=== PATIENT | male | born 1990 | race Caucasian/White ===

== ENCOUNTER 2025-03-09 11:25 | Outpatient (OUT) | payer OTHER, SELFPAY ==
--- NOTE | 2025-03-09 | XR_ITS ---
[facility] [place] [address] Patient Name: DAISY CRUZ MRN: [id number] date: 1990 Sex: M Assigned Patient Location: RAD Current Patient Location: [facility] Accession/Order Number: [id number] Exam Date: 03/09/2025 11:34 Report Date: 03/09/2025 12:21 At the request of: GUILLAUME STAPLETON DO Procedure: XR ankle LT min 3V LEFT ANKLE - 3 views CLINICAL DATA: Left ankle pain posteriorly since injury playing basketball last night. COMPARISON: None AP, lateral and oblique views were obtained. There is no evidence of fracture or dislocation. The talar dome is intact. A tiny enthesophyte is present at the insertion of the Achilles tendon. There are no significant soft tissue abnormalities. XR/XR ankle LT min 3V IMPRESSION: NO ACUTE BONY INJURY. Impression dictated by: Cleo Gomez M.D. 03/09/2025 12:21 PM Dictation Location: [place] [address] Electronically authenticated by: [id number] Y Date: 03/09/2025 12:21
--- OUTSIDE RECORDS SUMMARY | 2025-03-09 11:27 | XMS_ITS | Clinical Summary ---
Author Organization [facility] Address [address] [place] [address] Care Team Providers Care Inside Sales Administrator Name Role Phone Unavailable Primary Care Provider Unavailabl e Social History Tobacco Use Types Packs/Day Years Used Date Smoking Tobacco: Never Assessed Sex and Gender Information Value Date Recorded Sex Assigned at Not on file Legal Sex Male 11:31 PM EDT Gender Identity Not on file Sexual Orientation Not on file Plan of Treatment Not on file
--- OUTSIDE RECORDS SUMMARY | 2025-03-09 11:27 | XMS_ITS | Encounter Summary ---
Author Organization [facility] Address [facility] [place] [address] Care Team Providers Care Marketing Content Specialist Name Role Phone Unavailable Primary Care Provider Unavailabl e Source Comments In the event this information is protected by the Federal Confidentiality of Alcohol and Drug AbusePatient Records regulations: The Federal rules restrict any use of the information to criminally investigate or prosecute any alcohol or drug abuse patient.[facility] Encounter Details Date Type Department Care Team ([facility] st Contact Info) Description 05/07/2020 Patient Msg [facility] [id number] Provider, [facility] Appointment Social History Tobacco Use Types Packs/Day Years Used Date Smoking Tobacco: Never Assessed Sex and Gender Information Value Date Recorded Sex Assigned at Not on file Legal Sex Male 7:50 PM EDT Gender Identity Not on file Sexual Orientation Not on file COVID-19 Exposure Response Date Recorded In the last month, have you been in contact with someone who was confirmed or suspected to have Coronavirus / COVID-19? No / Unsure 05/07/2020 11:15 AM EST documented as of this encounter Plan of Treatment Not on file documented as of this encounter Visit Diagnoses Not on filedocumented in this encounter Additional Health Concerns Infection Onset Date Last Indicated Resolved Time COVID-19 Confirmed 05/01/2020 05/01/2020 0 8:53 PM EST documented as of this encounter
--- OUTSIDE RECORDS SUMMARY | 2025-03-09 11:27 | XMS_ITS | Clinical Summary ---
Author Organization [facility] Address [address] [place], [place] [id number] Care Team Providers Care Cooky Packer Name Role Phone Unavailable Primary Care Provider Unavailabl e Social History Tobacco Use Types Packs/Day Years Used Date Smoking Tobacco: Never Assessed Area Deprivation Index Answer Date Donta rded National Score (1-100), lower number is lower ri sk Not on file 05/26/2020 State Score (1-10), lower number is lower risk N ot on file 05/26/2020 Data from: https://www.neighborhoodatlas.medicine.[facility]/. Last address used for calculation Not on file 05/26/2020 Sex and Gender Information Value Date Recorded Sex Assigned at Not on file Legal Sex Male 7:50 PM EDT Gender Identity Not on file Sexual Orientation Not on file Plan of Treatment Health Maintenance Due Date Last Done Comments Anxiety Screening 01/23/2010 Depression Screening 01/23/2010 HIV Screening 01/23/2010 Hepatitis C Screening 01/23/2010 DTaP,Tdap,Td Vaccine (1 - Tdap) 01/23/2011 Hepatitis B Vaccine (1 of 3 - 19+ 3-dose series) 01/23 HPV Vaccine (1 - 3-dose SCDM series) 01/23/2019 Influenza Vaccine (#1) 2025 Insurance [facility] CHOICE PLUS
--- OUTSIDE RECORDS SUMMARY | 2025-03-09 11:27 | XMS_ITS | Encounter Summary ---
Author Organization [facility] Address [address] [place] [address] Phone Care Team Providers Care Senior Firmware Engineer Name Role Phone Unavailable Primary Care Provider Unavailabl e Encounter Details Date Type Department Care Team (Late st Contact Info) Description 01/22/2023 Patient Risk Score [facility]CO [facility] [facility] [address] [place] [address] Social History Tobacco Use Types Packs/Day Years Used Date Smoking Tobacco: Never Assessed Sex and Gender Information Value Date Recorded Sex Assigned at Not on file Legal Sex Male 10:41 AM EST Gender Identity Not on file Sexual Orientation Not on file documented as of this encounter Plan of Treatment Not on file documented as of this encounter Visit Diagnoses Not on filedocumented in this encounter
--- OUTSIDE RECORDS SUMMARY | 2025-03-09 11:27 | XMS_ITS | Clinical Summary ---
Author Organization [facility] Address [address] [place] [address] Care Team Providers Care Grading Clerk Name Role Phone Unavailable Primary Care Provider Unavailabl e Allergies No known active allergies Medications amoxicillin-cla vulanate 875-125 MG PO TABS take 1 Tab by mouth every 12 hours. 20 Tab 0 02/22/2013 Active acetaminophen-c odeine 300-30 MG PO TABS take 1-2 Tabs by mouth every 4 hours as needed for Pain. 20 Tab 0 02/22/2013 Active predniSONE 20 MG PO TABS Take 3 tablets daily x 5 days 15 Tab 0 02/22/2013 Active lidocaine 2 % MT SOLN 15 mL by Mouth/Throat route every 3 hours as needed. 200 mL 0 02/22/2013 Active Social History Tobacco Use Types Packs/Day Years Used Date Smoking Tobacco: Never Alcohol Use Standard Drinks/Week Comments Yes 0 (1 standard drink = 0.6 oz pur e alcohol) Sex and Gender Information Value Date Recorded Sex Assigned at Not on file Legal Sex Male 5:41 PM EDT Gender Identity Not on file Sexual Orientation Not on file Last Filed Vital Signs Vital Sign Reading Time Taken Comments Blood Pressure 129/75 02/22/2013 5:45 PM EDT Pulse 94 02/22/2013 5:45 PM EDT Temperature 36.7 C (98 F) 02/22/2013 5:45 PM EDT Respiratory Rate 16 02/22/2013 5:45 PM EDT Oxygen Saturation 100% 02/22/2013 5:45 PM EDT Inhaled Oxygen Concentration - - Weight - - Height 185.4 cm (6' 1 ) 02/22/2013 5:43 PM EDT Body Mass Index - - Plan of Treatment Health Maintenance Due Date Last Done Comments HEPATITIS C VIRUS SCREENING 1990 TETANUS 1990 HIV SCREENING DISCUSSION 01/23/2007 HEP B VACCINE (1 of 3 - 19+ 3-dose series) 01/23/2011 TDAP (ADULT) 01/23/2011 HPV VACCINE (1 - 3-dose SCDM series) 01/23/2019 COVID-19 VACCINE (1 - 2023-2 5 season) 2025 INFLUENZA VACCINE (#1) 2025 PNEUMOCOCCAL VACCINE SERIES Aged Out No longer eligible based on patient's age to complete this topic Insurance MMO
--- OUTSIDE RECORDS SUMMARY | 2025-03-09 11:27 | XMS_ITS | Clinical Summary ---
Author Organization [facility] Address [address] [place] [address] Phone Care Team Providers Care Customer Contact Specialist Name Role Phone Unavailable Primary Care Provider Unavailabl e Social History Tobacco Use Types Packs/Day Years Used Date Smoking Tobacco: Never Assessed Sex and Gender Information Value Date Recorded Sex Assigned at Not on file Legal Sex Male 10:41 AM EST Gender Identity Not on file Sexual Orientation Not on file Plan of Treatment Health Maintenance Due Date Last Done Comments HIV Screening 1990 Lipid Panel 1990 Yearly Adult Physical 1990 MMR Vaccines (1 of 1 - Stand adriel series) 01/23/1993 Hepatitis C Screening 01/23/2010 Hepatitis B Vaccines (1 of 3 - 19+ 3-dose series) 01/23/2011 DTaP/Tdap/Td Vaccines (1 - Tdap) 01/23/2014 HPV Vaccines (1 - 3-dose sta ndard series) 01/23/2019 COVID-19 Vaccine (1 - 2023-2 5 season) 2025 Influenza Vaccine (#1) 2025 Zoster Vaccines (1 of 2) 01/23/2042 HIB Vaccines Aged Out No longer eligi ble based on patient's age to complete this topic Hepatitis A Vaccines Aged Out No long er eligible based on patient's age to complete this topic IPV Vaccines Aged Out No longer eligi ble based on patient's age to complete this topic Meningococcal Vaccine Aged Out No can sheryl eligible based on patient's age to complete this topic Pneumococcal Vaccine: Pediat rics and At-Risk Adult Patients Aged Out No longer epifanio gible based on patient's age to complete this topic Rotavirus Vaccines Aged Out No longer eligible based on patient's age to complete this topic
--- OUTSIDE RECORDS SUMMARY | 2025-03-09 11:27 | XMS_ITS | Encounter Summary ---
Author Organization [facility] Address [address] [place] [address] Phone Care Team Providers Care Casing Man Name Role Phone Unavailable Primary Care Provider Unavailabl e Encounter Details Date Type Department Care Team (Late st Contact Info) Description 02/22/2023 Patient Risk Score [facility] [address] [place] [address] Social History Tobacco Use Types [...]
--- OUTSIDE RECORDS SUMMARY | 2025-03-09 11:27 | XMS_ITS | Encounter Summary ---
Author Organization [facility] Address [address] [place] [address] Phone Care Team Providers Care Chisel Trimmer Name Role Phone Unavailable Primary Care Provider Unavailabl e Encounter Details Date Type Department Care Team (Late st Contact Info) Description 12/22/2022 Patient Risk Score ACO [facility] [address] [facility] [address] [place] [address] Social History Tobacco Use Types [...]
== END 2025-03-09 11:26 | disposition home or self-care (01) ==
LOC: RAD 11:25
PROVIDERS: PCP Internal Medicine; Visit Provider Physician Assistant
DX: M25.572 Pain in left ankle and joints of left foot (principal)
CPT/HCPCS: 73610